=== PATIENT | male | born 1995 | race Two or more races ===

== ENCOUNTER 2025-08-12 18:45 | Emergency (ER) | payer OTHER ==
[~2025-08-12] VITALS: Ht 170.2 cm; Wt 72.6 kg
[2025-08-12] MEDS ORDERED: CEPH-570 PO (19:37)
[2025-08-12] MEDS: TDAP [DIPH/PERTUSSIS/TET] 0.5 ML VIAL IM ONE (19:58)
[2025-08-12] MEDS ORDERED: TDAP [DIPH/PERTUSSIS/TET] 0.5 ML VIAL IM ONE (19:58)
[2025-08-12 20:27] VITALS: BP 104/84; TEMP 97.9; O2SAT 99
== END 2025-08-12 20:28 ==
LOC: ER 18:52
DX: S51.011A Laceration without foreign body of right elbow, initial encounter (principal); W25.XXXA Contact with sharp glass, initial encounter; Y93.89 Activity, other specified; Y92.89 Other specified places as the place of occurrence of the external cause; Y99.8 Other external cause status
CPT/HCPCS: 90715